=== PATIENT | male | born 1965 | race Caucasian/White ===

== ENCOUNTER 2021-12-19 20:53 | Emergency (ER) | payer OTHER, SELFPAY ==
--- NOTE | ~2021-12-19 | XR_ITS ---
EXAM: XR hand RT min 3V HISTORY: FALL ON RT HAND,PAIN THROUGHOUT ALL METACARPALS W/ TINGLES COMPARISON: X-ray right wrist, same date. FINDINGS: Normal mineralization. No fracture or dislocation. No lytic or blastic lesion. Scattered d egenerative changes. No erosion or periosteal change. Soft tissues within normal limits. IMPRESSION: No acute osseous finding in the right hand. Reviewed, dictated and finalized at location K.
--- NOTE | ~2021-12-19 | XR_ITS ---
EXAM: XR wrist RT min 3V HISTORY: PT CAUGHT HIMSELF W/ R HAND YESTERDAY, PAIN THROUGHOUT WRIST COMPARISON: Normal mineralization. No fracture or dislocation. No lytic or blastic lesion. Degenerat evelina changes, worst at the triscaphe joint. No erosion or periosteal change. Soft tissues within yadiel l limits. FINDINGS: IMPRESSION: Reviewed, dictated and finalized at location K. IMPRESSION:
[2021-12-19 20:59] VITALS: BP 131/81; PULSE 77; RESP 18; TEMP 36.2; O2SAT 100
[2021-12-19] MEDS: HYDROcodone/acetaminophen (*CRX) 5-325 MG TABLET 1 TAB PO (21:54)
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
== END 2021-12-19 22:25 | disposition home or self-care (01) ==
PROVIDERS: Emergency Provider Emergency Medicine
DX: S63.501A Unspecified sprain of right wrist, initial encounter (principal); W01.0XXA Fall on same level from slipping, tripping and stumbling without subsequent striking against object, initial encounter
CPT/HCPCS: 73110; 73130; 99283; A9270